=== PATIENT | female | born 1990 | race Caucasian/White ===

== ENCOUNTER 2020-09-12 22:55 | Emergency (ER) | payer BC, OTHER ==
[2020-09-12 23:03] VITALS: TEMP 97.9
[2020-09-12] MEDS ORDERED: SODIUM CHLORIDE 0.9% 500 ML 500 ML IV ONE (23:20)
[2020-09-12] MEDS ORDERED: KETOROLAC 15 MG/ML 1 ML VIAL IVP STA (23:20)
[2020-09-12] MEDS ORDERED: diphenhydrAMINE 50 MG/ML 1 ML VIAL IVP STA (23:20)
[2020-09-12] MEDS ORDERED: METOCLOPRAMIDE 5 MG/ML 2 ML VIAL IVP STA (23:20)
--- NOTE | 2020-09-12 23:33 | ED ---
Headache HPI - General Chief Complaint: Headache Stated Complaint: Headache Time Seen by Provider: 09/12/20 23:08 Source: patient, RN notes reviewed Mode of arrival: ambulatory Limitations: no limitations - History of Present Illness Initial Comments: 30-year-old female presents emergency Department chief complaint of headache times a days. Patient states she is a frontal headache states it feels like some pressure, some tingling at times. She states that she remembers this starting as it was the day of her mothers [employer]. She did admit that she initially there was from some anxiety issues in which she suffers from. She did have an episode of vomiting that day has had some intermittent nausea but only when she takes her Imitrex and which she was prescribed for this headache. She is not suffers chronic headaches no history of migraines. No blurred vision no focal weakness she states that she did some Telehealth appointment in which they diagnosed her with acute sinusitis. Patient states she has no significant nasal congestion cough cold like symptoms. - Related Data Allergies Allergy/AdvReac Type Severity Reaction Status Date / Time No Known Allergies Allergy Verified 09/12/20 23:03 Review of Systems ROS Statement: Those systems with pertinent positive or pertinent negative responses have been documented in the HPI. ROS Other: All systems not noted in ROS Statement are negative. Past Medical History Past Medical History: Thyroid Disorder Additional Past Medical History / Comment(s): Hypothyroid History of Any Multi-Drug Resistant Organisms: None Reported Past Surgical History: No Surgical Hx Reported Past Psychological History: No Psychological Hx Reported Smoking Status: Never smoker Past Alcohol Use History: None Reported Past Drug Use History: None Reported General Exam Limitations: no limitations General appearance: alert, in no apparent distress Head exam: Present: atraumatic, normocephalic, normal inspection Eye exam: Present: normal appearance, PERRL, EOMI. Absent: scleral icterus, conjunctival injection, periorbital swelling ENT exam: Present: normal exam, normal oropharynx, mucous membranes moist, TM's normal bilaterally Neck exam: Present: normal inspection, full ROM. Absent: tenderness, men ingismus, lymphadenopathy Respiratory exam: Present: normal lung sounds bilaterally. Absent: respiratory distress, wheezes, rales, rhonchi, stridor Cardiovascular Exam: Present: regular rate, normal rhythm, normal heart sounds. Absent: systolic murmur, diastolic murmur, rubs, gallop, clicks Neurological exam: Present: alert, oriented X3, CN II-XII intact, reflexes normal. Absent: motor sensory deficit Skin exam: Present: warm, dry, intact, normal color. Absent: rash Course Vital Signs 09/12/20 22:58 Temperature 97.9 F Pulse Rate 108 H Respiratory 18 Rate Blood Pressure 133/91 O2 Sat by Pulse 100 Oximetry Medical Decision Making - Medical Decision Making 30-year-old presented for headache. CT is unremarkable. Patient does feel slightly improved after medications. Patient will follow-up with PCP and return for any worsening change in symptoms. Disposition Clinical Impression: Headache Disposition: HOME SELF-CARE Condition: Stable Instructions (If sedation given, give patient instructions): Acute Headache (ED) Additional Instructions: Please return to the Emergency Department if symptoms worsen or any other concerns. Is patient prescribed a controlled substance at d/c from ED?: No Referrals: Ramy Nuñez MD [Primary Care Provider] - 1-2 days Time of Disposition: 00:26
--- NOTE | 2020-09-12 23:48 | CT ---
EXAMINATION TYPE: CT brain wo con DATE OF EXAM: 09/12/2020 COMPARISON: None HISTORY: Headache x 8 days. no prior on PACS CT DLP: 1068.4 mGycm Automated exposure control for dose reduction was used. Images obtained of the brain without contrast. Ventricles and sulci appear normal. There is no mass effect nor midline shift. There is no sign of in tracranial hemorrhage. The calvarium is intact. There is no evidence of cerebral edema. Skull base is intact. IMPRESSION: Negative unenhanced head CT scan.
[2020-09-13 00:39] VITALS: BP 124/86; PULSE 98; RESP 16
== END 2020-09-13 00:39 | disposition home or self-care (01) ==
LOC: EC 22:55
DX: R51.9 Headache, unspecified (principal); E03.9 Hypothyroidism, unspecified
CPT/HCPCS: 70450; 96374; 96375 ×2; 99284; J1200; J2765; J1885

== ENCOUNTER → 2020-12-10 | Outpatient (CLI) | payer BC ==
--- NOTE | 2020-12-10 10:30 | MR ---
EXAMINATION TYPE: MR brain and iac wo/w con DATE OF EXAM: 12/10/2020 COMPARISON: CT brain September 12, 2020 HISTORY: Vertigo, dizziness TECHNIQUE: Multiplanar, multisequence images of the brain and brainstem along with the internal auditory canals are all performed without and with IV contrast, utilizing 9 mL intravenous Gadavist . FINDINGS: Diffusion weighted images demonstrate no evidence of a recent infarct or other diffusion ab normality. There is no extra-axial fluid collection or significant white matter signal abnormality. The ventricular system and cisternal spaces are normal in size and appearance. The brain volume is age appropriate. Midline structures demonstrate normal morphology. The craniocervical junction appears within normal limits. Post contrast images demonstrate no abnormal enhancement. Small caliber vertebrobasilar syst em is noted. The dural venous sinuses appear patent. The visualized sinuses are clear and the globes are intact. No suspicious opacification of the mastoid air cells bilaterally. The vestibulocochlear complexes are symmetric and thought within normal limits. No suspicious enhancing cerebellopontine angle mass iden tified bilaterally. IMPRESSION: Small caliber vertebral basilar system, correlate for insufficiency otherwise unremarkabl e study.
== END | disposition home or self-care (01) ==
LOC: RADMRIMAIN 09:16
PROVIDERS: ATTEND Family Medicine
DX: R42 Dizziness and giddiness (principal)
CPT/HCPCS: 70553; A9585